=== PATIENT | female | born 1975 | race Caucasian/White ===

== ENCOUNTER 2017-03-09 02:08 | Observation (INO) | payer BC, SELFPAY ==
[~2017-03-09 02:08] MED LIST: ADVIL200 MG PO; ANTIVERT25 MG PO; BACTRIM DS1 TAB PO; COMPAZINE10 M PO; DULCOLAX10 MG/SUPP RC; FLEXERIL10 MG PO; IBUPROFEN200 MG; MACROBID 100 M100 MG PO; MOTRIN800 MG PO; NORCO 5/325 TAB1 TAB PO; PERCOCET 5/3251 TAB PO; PROTONIX40 M1 PO; PROTONIX40 MG PO; SENOKOT-S TABLE1 TAB PO; SURFAK240 MG PO; TRAMADOL HCL50 MG; TRAMADOL HCL50 MG PO; TYLENOL W/CODEI1 TAB; TYLENOL325 MG PO; TYLENOL500 MG PO; VICODIN 5/500 T1 TAB PO; WAL-PROFEN200 M1 PO; ZOFRAN ODT4 MG/UDTAB PO; ZOFRAN4 MG; ZOFRAN4 MG PO
[2017-03-09 02:40] LABS: BASO % 0.5 % (0-2); EOS % 1.2 % (0-7); HCT-HEMATOCRIT 44.6 % (34.0-49.0); IMMATURE GRANULOCYTES ABSOLUTE 0.01 tho/cmm (0-0.03); IMMATURE GRANULOCYTES PERCENT 0.1 % (0-0.3); LYMPH % 50.5 % (20-45); MCH (MEAN CORPUSCULAR HGB) 30.5 pg (28.0-32.0); MCHC MEAN CORPUSCULAR HGB CONC 33.6 % (32.0-36.0); MCV (MEAN CELL VOLUME) 90.7 fl (82.0-96.0); MEAN PLATELET VOLUME 11.4 cmc (9.4-12.4); MONO % 5.9 % (0-12); NEUTROPHIL ABSOLUTE COUNT 4.1 tho/cmm (1.6-8.0); NEUTROPHIL-AUTOMATED 4.1 tho/cmm (1.6-8.0); NEUTROPHILS % 41.8 % (40-80); PLATELET COUNT 186 tho/cmm (150-450); RED BLOOD COUNT 4.92 mil/cmm (4.00-5.20); RED CELL DISTRIBUTION WIDTH 12.5 % (12.4-16.4); WHITE BLOOD COUNT 9.9 tho/cmm (4.0-10.0)
[2017-03-09 02:42] LABS: BASO ABSOLUTE COUNT 0.1 tho/cmm (0.0-0.2); EOSINOPHIL ABSOLUTE COUNT 0.1 tho/cmm (0.0-0.7); MONOCYTE ABSOLUTE COUNT 0.6 tho/cmm (0.0-1.2)
[2017-03-09] MEDS ORDERED: LINZESS145 MC1 PO (02:45)
[2017-03-09 03:09] LABS: ALB/GLOB RATIO 1.2 (0.8-2.0); ALBUMIN 4.2 g/dl (3.5-5.0); ALKALINE PHOSPHATASE 74 U/L (33-138); ALT/SGPT 54 U/L (12-78); BILIRUBIN,TOTAL 0.2 mg/dl (0-1.5); BLOOD UREA NITROGEN 21 mg/dl (6-24); CARBON DIOXIDE-VENOUS 24 mmol/L (22-32); CHLORIDE 108 mmol/l (96-110); CREATININE 1.05 mg/dl (0.50-1.10); GLUCOSE 106 mg/dL (70-110); SODIUM 141 mmol/L (135-145); eGFR VALUE FOR BLACK 76 mL/Min
[2017-03-09 03:11] LABS: ANION GAP 13 mmol/L (0-20); AST/SGOT 71 U/L (10-40); MAGNESIUM 2.2 mg/dl (1.8-2.6); POTASSIUM 4.2 mmol/L (3.7-5.1)
[2017-03-09 08:46] LABS: PROCALCITONIN <0.05 ng/ml (0.05-0.09)
[2017-03-09] MEDS ORDERED: TYLENOL325 M2 PO (15:56)
[2017-03-09] MEDS ORDERED: ZOFRAN4 M2 PO (15:57)
== END 2017-03-09 15:30 ==
LOC: EDMED 02:08 → EMR2 06:30 → 5WE 07:25
PROVIDERS: Emergency Medicine; ADMIT Internal Medicine
DX: R10.9 Unspecified abdominal pain (principal); R11.2 Nausea with vomiting, unspecified; R41.82 Altered mental status, unspecified; Z90.710 Acquired absence of both cervix and uterus; Z79.899 Other long term (current) drug therapy; Z90.49 Acquired absence of other specified parts of digestive tract; Z88.0 Allergy status to penicillin; Z88.6 Allergy status to analgesic agent; Z88.8 Allergy status to other drugs, medicaments and biological substances; Z87.891 Personal history of nicotine dependence; Z83.3 Family history of diabetes mellitus
CPT/HCPCS: G0378; J2405; J7030